=== PATIENT | male | born 1970 | race Two or more races ===

== ENCOUNTER 2019-10-29 16:18 | Inpatient (IN) | payer MEDICAID ==
[~2019-10-29] VITALS: Ht 175.3 cm; Wt 86.8 kg
[2019-10-29] MEDS ORDERED: HALOPERIDOL 5 MG TABLET PO PRN (18:45)
[2019-10-29] MEDS: ZIPRASIDONE HCL 60 MG CAPSULE PO SCH (19:00)
[2019-10-29] MEDS ORDERED: ACETAMINOPHEN 325 MG TABLET PO PRN (20:00)
[2019-10-29 20:15] VITALS: BP 116/75
[2019-10-29] MEDS ORDERED: MAGNESIUM HYDROXIDE SUSPENSION 30 ML UDCUP PO PRN (20:15)
[2019-10-29] MEDS ORDERED: LOPERAMIDE HCL 2 MG CAPSULE PO PRN (20:15)
[2019-10-29] MEDS ORDERED: NICOTINE 14 MG/24 HOUR PATCH TD PRN (20:15)
[2019-10-29] MEDS ORDERED: MAG HYDROX/AL HYDROX/SIMETH ES 30 ML SUSPENSION UDCUP PO PRN (20:15)
[2019-10-29] MEDS ORDERED: ONDANSETRON HCL 4 MG TABLET PO PRN (20:15)
[2019-10-29] MEDS ORDERED: GuaiFENesin/D-METHORPHAN [SUGAR-FREE] 200-20MG/10 ML SYRUP UDCUP PO PRN (20:15)
[2019-10-29] MEDS ORDERED: ALBUTEROL SULFATE HFA 90 MCG/PUFF 8 GM INHALER IH PRN (20:15)
[2019-10-29] MEDS ORDERED: CloNIDine HCL 0.1 MG TABLET PO PRN (20:15)
[2019-10-29] MEDS ORDERED: IBUPROFEN 400 MG TABLET PO PRN (20:15)
[2019-10-29] MEDS ORDERED: PETROLATUM,WHITE 28 GM JELLY TP PRN (20:15)
[2019-10-29] MEDS ORDERED: DOCUSATE SODIUM 100 MG CAPSULE PO PRN (20:15)
[2019-10-29 20:17] VITALS: BP 116/75
[2019-10-29] MEDS: LORazepam 2 MG TABLET PO PRN (20:49)
[2019-10-29] MEDS: ZOLPIDEM TARTRATE 10 MG TABLET PO PRN (20:49)
[2019-10-30] MEDS ORDERED: INFLUENZA VIRUS VACCINE QVS 2019-20 (3YR+)/PF 60 MCG/0.5 ML SYRINGE IM ONE (01:00)
[2019-10-30 06:26] VITALS: BP 119/72
[2019-10-30] MEDS: ZIPRASIDONE HCL 60 MG CAPSULE PO SCH ×2 (07:05→16:50)
[2019-10-30 07:56] LABS: BASOPHILS % (AUTO) 1.4 % (0.0-2.0); EOSINOPHILS % (AUTO) 3.8 % (1.0-6.0); HEMATOCRIT 41.1 % (41-53); HEMOGLOBIN 13.7 g/dL (13.5-17.5); LYMPHOCYTES % (AUTO) 39.2 % (22.0-44.0); MEAN CORPUSCULAR HEMOGLOBIN 31.9 pg (26.0-34.0); MEAN CORPUSCULAR HGB CONC 33.3 G/dL (31.0-37.0); MEAN CORPUSCULAR VOLUME 96 fL (80-100); MONOCYTES # (AUTO) 0.9 K/uL (0.1-1.0); MONOCYTES % (AUTO) 11.2 % (2.0-9.0); NEUTROPHILS # (AUTO) 3.4 K/uL (1.8-7.7); NEUTROPHILS % (AUTO) 44.4 % (40.0-70.0); PLATELET COUNT (AUTO) 310 K/uL (150-450); RED BLOOD CELL COUNT(AUTO) 4.28 MIL/uL (4.50-5.90); RED CELL DISTRIBUTION WIDTH 14.6 % (11.5-14.5)
[2019-10-30 08:10] LABS: ALANINE AMINOTRANSFERASE 25 U/L (12-78); ALBUMIN 3.1 g/dL (3.4-5.0); ALKALINE PHOSPHATASE 112 U/L (46-116); ANION GAP 8 mmol/L (8-16); ASPARTATE AMINOTRANSFERASE 22 U/L (15-37); BILIRUBIN,TOTAL 0.3 mg/dL (0.1-1.0); CALCIUM, TOTAL 8.7 mg/dL (8.8-10.5); CARBON DIOXIDE 29 mmol/L (22-29); CHLORIDE 105 mmol/L (98-107); CHOL/HDL RATIO 2.7 (4.2-7.3); CHOLESTEROL 126 mg/dL (131-200); CREATININE 0.82 mg/dL (0.60-1.30); GLOMERULAR FILTR. RATE CALC > 60 mL/min (>60); GLUCOSE,RANDOM 98 mg/dL (70-110); HDL CHOLESTEROL 46 mg/dL (40-60); LDL CHOL (CALC.) 68 mg/dL (0-130); POTASSIUM 4.2 mmol/L (3.5-5.1); SODIUM SERUM 142 mmol/L (136-145); TOTAL PROTEIN, SERUM 6.8 g/dL (6.4-8.2); TRIGLYCERIDES 61 mg/dL (15-150); UREA NITROGEN, BLOOD 17 mg/dL (7-18)
[2019-10-30 08:16] LABS: HEMOGLOBIN A1C 6.1 % (3.8-5.6)
[2019-10-30 08:41] VITALS: BP 119/60
[2019-10-30] MEDS: LevETIRAcetam 500 MG TABLET PO SCH ×2 (09:08→16:50)
[2019-10-30] MEDS: LORazepam 2 MG TABLET PO PRN (14:53)
[2019-10-30] MEDS ORDERED: ChlordiazePOXIDE HCL 25 MG CAPSULE PO PRN (15:15)
[2019-10-30 16:08] VITALS: BP 102/62
[2019-10-31] VITALS (7 sets, daily range): BP systolic 110–126; BP diastolic 57–78
[2019-10-31] MEDS: ZIPRASIDONE HCL 60 MG CAPSULE PO SCH ×2 (06:42→16:33)
[2019-10-31] MEDS ORDERED: ChlordiazePOXIDE HCL 25 MG CAPSULE PO PRN (07:00)
[2019-10-31] MEDS: LevETIRAcetam 500 MG TABLET PO SCH ×2 (08:34→16:33)
[2019-10-31] MEDS: ChlordiazePOXIDE HCL 25 MG CAPSULE PO SCH ×3 (08:34→20:04)
[2019-10-31] MEDS ORDERED: LORazepam 1 MG TABLET PO ONE (13:45)
[2019-10-31] MEDS ORDERED: LIB25 PO (18:55)
[2019-10-31] MEDS ORDERED: LEVE500T8 PO (18:55)
[2019-10-31] MEDS ORDERED: ZIPR60CA2 PO (18:55)
[2019-11-01] MEDS: ZIPRASIDONE HCL 60 MG CAPSULE PO SCH ×2 (06:35→18:53)
[2019-11-01 06:47] VITALS: BP_SYST 114; BP_SYST 117; BP_DIAS 71
[2019-11-01 07:25] VITALS: BP 114/71
[2019-11-01 08:34] VITALS: BP 119/73
[2019-11-01 08:42] VITALS: BP 119/73
[2019-11-01] MEDS: ChlordiazePOXIDE HCL 25 MG CAPSULE PO SCH ×2 (09:00→12:34)
[2019-11-01] MEDS: LevETIRAcetam 500 MG TABLET PO SCH ×2 (09:22→18:53)
[2019-11-01] MEDS: LORazepam 2 MG TABLET PO PRN ×2 (13:47→18:53)
[2019-11-01 17:20] VITALS: BP 113/66
[2019-11-01] MEDS: ZOLPIDEM TARTRATE 10 MG TABLET PO PRN (22:33)
[2019-11-02 00:19] VITALS: BP 105/63
[2019-11-02] MEDS: ZIPRASIDONE HCL 60 MG CAPSULE PO SCH ×2 (06:42→16:59)
[2019-11-02] MEDS ORDERED: ChlordiazePOXIDE HCL 10 MG CAPSULE PO PRN (07:00)
[2019-11-02 08:22] VITALS: BP 117/72
[2019-11-02] MEDS ORDERED: ChlordiazePOXIDE HCL 10 MG CAPSULE PO SCH (09:00)
[2019-11-02] MEDS: LevETIRAcetam 500 MG TABLET PO SCH ×2 (09:36→16:59)
[2019-11-02] MEDS: SERTRALINE HCL 50 MG TABLET PO SCH (13:09)
[2019-11-02] MEDS: LORazepam 2 MG TABLET PO PRN ×2 (13:45→20:35)
[2019-11-02 16:11] VITALS: BP 120/72
[2019-11-03 01:35] VITALS: BP 121/78
[2019-11-03] MEDS: LORazepam 2 MG TABLET PO PRN (06:44)
[2019-11-03] MEDS: ZIPRASIDONE HCL 60 MG CAPSULE PO SCH (06:57)
[2019-11-03] MEDS ORDERED: ChlordiazePOXIDE HCL 10 MG CAPSULE PO PRN (07:00)
[2019-11-03] MEDS: LevETIRAcetam 500 MG TABLET PO SCH (08:39)
[2019-11-03] MEDS: SERTRALINE HCL 50 MG TABLET PO SCH (08:39)
[2019-11-03 08:53] VITALS: BP 114/65
[2019-11-03] MEDS ORDERED: SERT50TA12 PO (13:40)
== END 2019-11-03 15:31 | disposition home or self-care (01) | DRG 751 ==
LOC: EDBD 18:54 → B3A 18:54
PROVIDERS: ADMIT Psychiatry & Neurology Psychiatry; ATTEND Psychiatry & Neurology Psychiatry
DX: F29 Unspecified psychosis not due to a substance or known physiological condition (principal); G40.909 Epilepsy, unspecified, not intractable, without status epilepticus; F10.10 Alcohol abuse, uncomplicated; F32.9 Major depressive disorder, single episode, unspecified; F19.10 Other psychoactive substance abuse, uncomplicated; F17.210 Nicotine dependence, cigarettes, uncomplicated; F43.10 Post-traumatic stress disorder, unspecified; Z59.0 Homelessness; Z28.21 Immunization not carried out because of patient refusal; Z88.2 Allergy status to sulfonamides; Z71.41 Alcohol abuse counseling and surveillance of alcoholic; Z71.51 Drug abuse counseling and surveillance of drug abuser
CPT/HCPCS: 83036; 86592; 87081

== ENCOUNTER 2019-11-24 12:21 | Emergency (ER) | payer MEDICAID ==
[~2019-11-24] VITALS: Ht 175.3 cm; Wt 86.4 kg
[~2019-11-24 12:21] MED LIST: LEVE500T8 PO; SERT50TA12 PO; ZIPR60CA2 PO
[2019-11-24 13:45] VITALS: BP 133/79
== END 2019-11-24 15:51 | disposition home or self-care (01) ==
LOC: EMS 12:22
DX: R45.851 Suicidal ideations (principal); F20.9 Schizophrenia, unspecified; F17.210 Nicotine dependence, cigarettes, uncomplicated; Z88.2 Allergy status to sulfonamides; Z88.8 Allergy status to other drugs, medicaments and biological substances; Z79.899 Other long term (current) drug therapy